=== PATIENT | male | born 1985 | race Caucasian/White ===

== ENCOUNTER → 2018-02-22 | Outpatient (REF) | payer OTHER ==
[2018-02-22 22:23] LABS: APPEARANCE, URINE CLEAR (CLEAR); BACTERIA, URINE AUTO NEGATIVE (NEGATIVE); BILIRUBIN, URINE AUTO NEGATIVE (NEGATIVE); BLOOD, URINE BLOOD NEGATIVE (NEGATIVE); COLOR, URINE YELLOW (YELLOW); GLUCOSE, URINE (UA) AUTO NEGATIVE (NEGATIVE); KETONE, URINE AUTO NEGATIVE (NEGATIVE); LEUKOCYTE ESTERASE, URINE AUTO 1+ (NEGATIVE); MUCUS, URINE SMALL (NEGATIVE); NITRITE, URINE AUTO NEGATIVE (NEGATIVE); PROTEIN, URINE AUTO NEGATIVE (NEGATIVE); RBC, URINE AUTO 1 /HPF (0-3); SPECIFIC GRAVITY URINE AUTO 1.016 (1.002-1.035); SQUAMOUS EPITHELIAL CELL UR AU 0 /HPF (0-6); UROBILINOGEN, URINE AUTO 0.2 mg/dL (0.0-2.0); WBC, URINE AUTO 15 /HPF (0-3)
[2018-02-22 23:44] LABS: CHLAMYDIA DNA AMPLIFICATION NEGATIVE (NEGATIVE); GC DNA AMPLIFICATION NEGATIVE (NEGATIVE)
== END ==
LOC: M LAB REF 09:02
DX: R30.0 Dysuria (principal)

== ENCOUNTER → 2018-02-28 | Outpatient (REF) | payer OTHER | LOC: M SFHCPLAZ 15:49 | DX: R30.0 Dysuria (principal); Z13.0 Encounter for screening for diseases of the blood and blood-forming organs and certain disorders involving the immune mechanism; Z13.21 Encounter for screening for nutritional disorder; Z11.3 Encounter for screening for infections with a predominantly sexual mode of transmission; Z13.29 Encounter for screening for other suspected endocrine disorder ==

== ENCOUNTER → 2018-03-02 | Outpatient (REF) | payer OTHER ==
[2018-03-02 16:46] LABS: HEMATOCRIT 43.3 % (42.0-52.0); HEMOGLOBIN 15.1 g/dl (13.5-17.5); MEAN CORPUSCULAR HEMOGLOBIN 32.5 pg (27.0-33.0); MEAN CORPUSCULAR HGB CONC 34.9 g/dl (32.0-36.5); MEAN CORPUSCULAR VOLUME 93.3 fl (80.0-96.0); PLATELET COUNT, AUTOMATED 297 10^3/uL (150-450); RED BLOOD COUNT 4.64 10^6/uL (4.30-6.10); RED CELL DISTRIBUTION WIDTH 11.4 % (11.5-14.5); WHITE BLOOD COUNT 7.3 10^3/uL (4.0-10.0)
[2018-03-02 17:20] LABS: APPEARANCE, URINE CLEAR (CLEAR); BACTERIA, URINE AUTO NEGATIVE (NEGATIVE); BILIRUBIN, URINE AUTO NEGATIVE (NEGATIVE); BLOOD, URINE BLOOD NEGATIVE (NEGATIVE); COLOR, URINE STRAW (YELLOW); GLUCOSE, URINE (UA) AUTO NEGATIVE (NEGATIVE); KETONE, URINE AUTO NEGATIVE (NEGATIVE); LEUKOCYTE ESTERASE, URINE AUTO NEGATIVE (NEGATIVE); NITRITE, URINE AUTO NEGATIVE (NEGATIVE); PROTEIN, URINE AUTO NEGATIVE (NEGATIVE); RBC, URINE AUTO 1 /HPF (0-3); SPECIFIC GRAVITY URINE AUTO 1.011 (1.002-1.035); SQUAMOUS EPITHELIAL CELL UR AU 0 /HPF (0-6); UROBILINOGEN, URINE AUTO 0.2 mg/dL (0.0-2.0); WBC, URINE AUTO 0 /HPF (0-3)
[2018-03-02 17:25] LABS: ALBUMIN 4.3 GM/DL (3.2-5.2); ALKALINE PHOSPHATASE 81 U/L (45-117); ALT/SGPT 76 U/L (12-78); ANION GAP 7 MEQ/L (8-16); AST/SGOT 36 U/L (7-37); BILIRUBIN,TOTAL 0.3 MG/DL (0.2-1.0); BLOOD UREA NITROGEN 13 MG/DL (7-18); CALCIUM LEVEL 9.3 MG/DL (8.5-10.1); CARBON DIOXIDE LEVEL 30 MEQ/L (21-32); CHLORIDE LEVEL 101 MEQ/L (98-107); CREATININE FOR GFR 1.33 MG/DL (0.70-1.30); FREE T4 0.97 NG/DL (0.76-1.46); GLOMERULAR FILTRATION RATE > 60.0 (>60); GLUCOSE, FASTING 89 MG/DL (70-100); POTASSIUM SERUM 4.4 MEQ/L (3.5-5.1); SODIUM LEVEL 138 MEQ/L (136-145); TOTAL PROTEIN 8.6 GM/DL (6.4-8.2)
[2018-03-02 18:52] LABS: ESTIMATED AVERAGE GLUCOSE 105 MG/DL (60-110); HEMOGLOBIN A1c 5.3 %
[2018-03-03 12:20] LABS: HIV 1&2 SCREEN CENTAUR NEGATIVE (NEGATIVE)
== END ==
LOC: M SFHCPLAZ 15:53
DX: R30.0 Dysuria (principal); Z13.0 Encounter for screening for diseases of the blood and blood-forming organs and certain disorders involving the immune mechanism; Z13.21 Encounter for screening for nutritional disorder; Z11.3 Encounter for screening for infections with a predominantly sexual mode of transmission; Z13.29 Encounter for screening for other suspected endocrine disorder
CPT/HCPCS: 84443

== ENCOUNTER → 2018-09-19 | Outpatient (CLI) | payer BC, OTHER | LOC: M SLEEP HO 11:03 | DX: G47.33 Obstructive sleep apnea (adult) (pediatric) (principal) | CPT/HCPCS: G0399 ==

== ENCOUNTER → 2018-09-25 | Outpatient (CLI) | payer BC, OTHER | LOC: M WUC 15:46 | DX: M79.672 Pain in left foot (principal) | CPT/HCPCS: 73630 ==

== ENCOUNTER → 2019-01-08 | Outpatient (REF) | payer OTHER | LOC: M SFHCPLAZ 14:34 | PROVIDERS: ATTEND Family Medicine | DX: E55.9 Vitamin D deficiency, unspecified (principal) ==

== ENCOUNTER 2019-08-11 17:08 | Emergency (ER) | payer BC, OTHER ==
[~2019-08-11] VITALS: Ht 177.8 cm; Wt 97.7 kg
[2019-08-11 17:08] VITALS: BP 141/86
[2019-08-11] MEDS ORDERED: ZANT150T40 PO (17:14)
[2019-08-11] MEDS ORDERED: IBUPROFEN 600 MG TAB PO ONE (19:00)
--- NOTE | 2019-08-12 09:19 | REP ---
Left ankle four views : There is no fracture or dislocation. Mineralization and joint spaces are normal. There are no calcifications or foreign bodies. Impression: Negative left ankle . Electronically Signed by Mendel Garcia MD 08/12/2019 09:11 A
== END 2019-08-11 19:03 | disposition home or self-care (01) ==
LOC: M ED 17:08
DX: S93.402A Sprain of unspecified ligament of left ankle, initial encounter (principal); W10.8XXA Fall (on) (from) other stairs and steps, initial encounter; Y92.018 Other place in single-family (private) house as the place of occurrence of the external cause; Z79.899 Other long term (current) drug therapy

== ENCOUNTER → 2022-10-27 | Outpatient (CLI) | payer BC, OTHER ==
[~2022-10-27] MED LIST: ZANT150T40 PO
[2022-10-27 18:58] LABS: BASO % 0.6 % (0.0-1.0); EOS % 0.6 % (0.0-3.0); HEMATOCRIT 45.6 % (42.0-52.0); HEMOGLOBIN 15.2 g/dl (13.5-17.5); LYMPH # 1.7 10^3/uL (1.5-5.0); LYMPH % 24.1 % (24.0-44.0); MEAN CORPUSCULAR HGB CONC 33.3 g/dl (32.0-36.5); MEAN CORPUSCULAR VOLUME 99.1 fl (80.0-96.0); MONO # 0.9 10^3/uL (0.0-0.8); MONO % 11.9 % (2.0-8.0); NEUTROPHILS # 4.5 10^3/uL (1.5-8.5); NEUTROPHILS % 62.2 % (36.0-66.0); PLATELET COUNT, AUTOMATED 255 10^3/uL (150-450); WHITE BLOOD COUNT 7.2 10^3/uL (4.0-10.0)
[2022-10-27 19:26] LABS: ALBUMIN 4.5 G/DL (3.2-5.2); ALKALINE PHOSPHATASE 69 U/L (46-116); ALT/SGPT 48 U/L (7.0-40); AST/SGOT 28 U/L (<34); BILIRUBIN,TOTAL 0.4 MG/DL (0.3-1.2); BLOOD UREA NITROGEN 19 MG/DL (9-23); CARBON DIOXIDE LEVEL 29 MMOL/L (20-31); CHLORIDE LEVEL 101 MMOL/L (98-107); CHOLESTEROL LEVEL 240 MG/DL (<200); CHOLESTEROL RISK RATIO 4.17 (<5); CREATININE FOR GFR 1.07 MG/DL (0.70-1.30); GLOMERULAR FILTRATION RATE > 60.0 (>60); GLUCOSE, FASTING 102 MG/DL (60-100); HDL CHOLESTEROL 57.5 MG/DL (>40); LDL CHOLESTEROL 116.1 MG/DL (<100); NON-HDL-C 183 MG/DL; POTASSIUM SERUM 4.3 MMOL/L (3.5-5.1); SODIUM LEVEL 139 MMOL/L (136-145); TOTAL PROTEIN 7.6 G/DL (5.7-8.2); TRIGLYCERIDES LEVEL 332 MG/DL (<150)
[2022-10-27 19:28] LABS: TOTAL 25(OH) VITAMIN D 39.9 NG/ML (20.0-100.0)
== END ==
LOC: M PLALAB 14:37
PROVIDERS: ATTEND Nurse Practitioner Family
DX: E55.9 Vitamin D deficiency, unspecified (principal); R82.998 Other abnormal findings in urine; Z13.220 Encounter for screening for lipoid disorders; J45.20 Mild intermittent asthma, uncomplicated

== ENCOUNTER → 2022-11-22 | Outpatient (CLI) | payer BC, OTHER ==
[2022-11-22 17:42] LABS: APPEARANCE, URINE MANUAL CLEAR (CLEAR); BILIRUBIN, URINE MANUAL NEGATIVE (NEGATIVE); BLOOD URINE MANUAL NEGATIVE (NEGATIVE); COLOR, URINE MANUAL YELLOW (YELLOW); GLUCOSE, URINE (UA) MANUAL NEGATIVE (NEGATIVE); KETONE, URINE MANUAL NEGATIVE (NEGATIVE); LEUKOCYTE ESTERASE, URINE MAN NEGATIVE (NEGATIVE); NITRITE, URINE MANUAL NEGATIVE (NEGATIVE); PROTEIN, URINE MANUAL NEGATIVE (NEGATIVE); UROBILINOGEN, URINE MANUAL NORMAL (NORMAL)
== END ==
LOC: M PLALAB 14:28
PROVIDERS: ATTEND Nurse Practitioner Family
DX: R82.998 Other abnormal findings in urine (principal)

== ENCOUNTER → 2022-11-22 | Outpatient (CLI) | payer BC, OTHER | LOC: M PLAIMG 14:26 | PROVIDERS: ATTEND Physician Assistant Medical | DX: M25.511 Pain in right shoulder (principal); M25.512 Pain in left shoulder; M54.50 Low back pain, unspecified ==

== ENCOUNTER 2023-06-04 15:05 | Emergency (ER) | payer BC, OTHER ==
[~2023-06-04] VITALS: Ht 180.3 cm; Wt 95.7 kg
[2023-06-04 15:06] VITALS: BP 142/92; TEMP 98.2; O2SAT 99
[2023-06-04] MEDS ORDERED: RABIES VACCINE HUMAN 2.5 INTERNATIONAL UNITS/ML VIAL IM ONE (16:20)
[2023-06-04] MEDS ORDERED: RABIES IMMUNE GLOBULIN 1500 INTERNATIONAL UNIT/5ML VIAL IM.IMMUN ONE ×2 (16:20→16:25)
[2023-06-04] MEDS ORDERED: RABIES IMMUNE GLOBULIN 300 INTERNATIONAL UNITS/1ML VIAL IM.IMMUN ONE (16:25)
[2023-06-04] MEDS ORDERED: BOOSTRIX VACCINE (TETANUS/DIPHTH/ACEL. PERTUSSIS) 0.5ML SYR IM ONE (17:05)
== END 2023-06-04 17:12 | disposition home or self-care (01) ==
LOC: M ED 15:05
DX: Z29.14 Encounter for prophylactic rabies immune globulin (principal); K21.9 Gastro-esophageal reflux disease without esophagitis; N43.3 Hydrocele, unspecified; Z79.899 Other long term (current) drug therapy

== ENCOUNTER → 2023-06-07 | Outpatient (CLI) | payer BC, OTHER | LOC: M SLEEP 20:00 | PROVIDERS: ATTEND Nurse Practitioner Family | DX: G47.33 Obstructive sleep apnea (adult) (pediatric) (principal); R06.83 Snoring ==

== ENCOUNTER 2024-06-04 09:55 | Emergency (ER) | payer BC, OTHER ==
[~2024-06-04] VITALS: Ht 180.3 cm; Wt 93.9 kg
[2024-06-04 09:56] VITALS: BP 148/93; TEMP 98.4; O2SAT 98
[2024-06-04] MEDS ORDERED: NEXI20CA33 PO (10:00)
[2024-06-04] MEDS ORDERED: RABIES IMMUNE GLOBULIN 1500 INTERNATIONAL UNIT/5ML VIAL IM.IMMUN ONE ×2 (10:15→11:00)
[2024-06-04] MEDS: RABIES VACCINE HUMAN 2.5 INTERNATIONAL UNITS/ML VIAL IM ONE (10:37)
[2024-06-04] MEDS: RABIES IMMUNE GLOBULIN 300 INTERNATIONAL UNITS/1ML VIAL IM.IMMUN ONE (11:02)
[2024-06-04] MEDS: RABIES IMMUNE GLOBULIN 1500 INTERNATIONAL UNIT/5ML VIAL IM.IMMUN ONE (11:08)
== END 2024-06-04 11:26 | disposition home or self-care (01) ==
LOC: M ED 09:55
DX: Z20.3 Contact with and (suspected) exposure to rabies (principal); Z23 Encounter for immunization

== ENCOUNTER 2024-06-07 07:01 | Emergency (ER) | payer BC ==
[~2024-06-07] VITALS: Ht 180.3 cm; Wt 94.4 kg
[2024-06-07 07:01] VITALS: BP 145/89; TEMP 97.3; O2SAT 99
[~2024-06-07 07:01] MED LIST changes: +NEXI20CA33 PO
[2024-06-07] MEDS: RABIES VACCINE HUMAN 2.5 INTERNATIONAL UNITS/ML VIAL IM ONE (08:25)
== END 2024-06-07 09:01 | disposition home or self-care (01) ==
LOC: M ED 07:01
DX: Z20.3 Contact with and (suspected) exposure to rabies (principal); Z23 Encounter for immunization

== ENCOUNTER 2024-06-11 10:54 | Emergency (ER) | payer BC ==
[~2024-06-11] VITALS: Ht 180.3 cm; Wt 94.2 kg
[2024-06-11 10:55] VITALS: BP 140/96; TEMP 97.6; O2SAT 98
[2024-06-11] MEDS: RABIES VACCINE HUMAN 2.5 INTERNATIONAL UNITS/ML VIAL IM ONE (11:50)
== END 2024-06-11 12:05 | disposition home or self-care (01) ==
LOC: M ED 10:54
DX: Z20.3 Contact with and (suspected) exposure to rabies (principal); Z23 Encounter for immunization; Z79.899 Other long term (current) drug therapy

== ENCOUNTER 2024-06-18 10:44 | Emergency (ER) | payer BC, OTHER ==
[~2024-06-18] VITALS: Ht 180.3 cm; Wt 94.6 kg
[2024-06-18] MEDS: RABIES VACCINE HUMAN 2.5 INTERNATIONAL UNITS/ML VIAL (IMOVAX) IM ONE (11:55)
[2024-06-18 12:16] VITALS: BP 138/88; TEMP 97.4; O2SAT 96
== END 2024-06-18 12:16 | disposition home or self-care (01) ==
LOC: M ED 10:44
DX: Z20.3 Contact with and (suspected) exposure to rabies (principal); Z23 Encounter for immunization; K21.9 Gastro-esophageal reflux disease without esophagitis; Z79.899 Other long term (current) drug therapy

== ENCOUNTER → 2024-08-17 | Outpatient (CLI) | payer BC ==
[2024-08-17 14:54] LABS: BASO % 0.6 % (0.0-1.0); EOS # 0.2 10^3/uL (0.0-0.5); HEMATOCRIT 43.5 % (42.0-52.0); HEMOGLOBIN 14.9 g/dl (13.5-17.5); LYMPH % 29.6 % (24.0-44.0); MEAN CORPUSCULAR HEMOGLOBIN 33.4 pg (27.0-33.0); MEAN CORPUSCULAR HGB CONC 34.3 g/dl (32.0-36.5); MEAN CORPUSCULAR VOLUME 97.5 fl (80.0-96.0); MONO # 0.6 10^3/uL (0.0-0.8); MONO % 9.5 % (2.0-8.0); NEUTROPHILS # 3.8 10^3/uL (1.5-8.5); NEUTROPHILS % 57.2 % (36.0-66.0); PLATELET COUNT, AUTOMATED 249 10^3/uL (150-450); RED BLOOD COUNT 4.46 10^6/uL (4.30-6.10); WHITE BLOOD COUNT 6.7 10^3/uL (4.0-10.0)
[2024-08-17 15:22] LABS: C REACTIVE PROTEIN QUANTITATIV < 0.40 MG/DL (<1.0)
[2024-08-17 15:24] LABS: ALBUMIN 4.5 G/DL (3.2-5.2); ALKALINE PHOSPHATASE 70 U/L (46-116); ALT/SGPT 56 U/L (7.0-40); AST/SGOT 25 U/L (<34); BILIRUBIN,TOTAL 0.6 MG/DL (0.3-1.2); BLOOD UREA NITROGEN 15 MG/DL (9-23); CARBON DIOXIDE LEVEL 31 MMOL/L (20-31); CHLORIDE LEVEL 105 MMOL/L (98-107); CHOLESTEROL LEVEL 260 MG/DL (<200); CHOLESTEROL RISK RATIO 4.34 (<5); CREATININE FOR GFR 0.85 MG/DL (0.70-1.30); GLOMERULAR FILTRATION RATE > 60.0 (>60); GLUCOSE, FASTING 85 MG/DL (60-100); HDL CHOLESTEROL 59.8 MG/DL (>40); LDL CHOLESTEROL 159.4 MG/DL (<100); NON-HDL-C 200.2 MG/DL; POTASSIUM SERUM 3.8 MMOL/L (3.5-5.1); RHEUMATOID FACTOR QUANT 5.2 IU/ML (<14); SODIUM LEVEL 137 MMOL/L (136-145); TOTAL PROTEIN 8.1 G/DL (5.7-8.2); TRIGLYCERIDES LEVEL 204 MG/DL (<150)
[2024-08-17 15:26] LABS: ERYTHROCYTE SEDIMENTATION RATE 15 mm/hr (0-15)
[2024-08-17 15:28] LABS: TOTAL 25(OH) VITAMIN D 41.7 NG/ML (20.0-100.0)
[2024-08-20 16:22] LABS: ANA SCREEN, IFA NEGATIVE (NEGATIVE)
[2024-08-21 19:08] LABS: LYME TOTAL ANTIBODY CIA <= 0.90 Index (<=0.90)
== END ==
LOC: M PLAIMG 12:15
PROVIDERS: ATTEND Nurse Practitioner Family
DX: M25.551 Pain in right hip (principal); M25.552 Pain in left hip; E55.9 Vitamin D deficiency, unspecified; E78.2 Mixed hyperlipidemia; Z13.1 Encounter for screening for diabetes mellitus; J45.20 Mild intermittent asthma, uncomplicated; R93.6 Abnormal findings on diagnostic imaging of limbs

== ENCOUNTER 2024-10-03 13:21 | Outpatient (RCR) | payer BC | END 2024-10-06 | LOC: M PT 13:21 | PROVIDERS: ATTEND Nurse Practitioner Family | DX: M25.859 Other specified joint disorders, unspecified hip (principal) ==

== ENCOUNTER 2024-10-22 07:00 | Outpatient (RCR) | payer BC | END 2024-11-06 | LOC: M PT 07:00 | PROVIDERS: ATTEND Nurse Practitioner Family | DX: M25.859 Other specified joint disorders, unspecified hip (principal) ==

== ENCOUNTER → 2025-09-04 | Outpatient (CLI) | payer BC ==
[2025-09-04 11:15] LABS: BASO # 0.0 10^3/uL (0.0-0.2); BASO % 0.5 % (0.0-1.0); EOS # 0.1 10^3/uL (0.0-0.5); EOS % 1.1 % (0.0-3.0); LYMPH # 1.9 10^3/uL (1.5-5.0); LYMPH % 33.0 % (24.0-44.0); MONO # 0.7 10^3/uL (0.0-0.8); MONO % 11.9 % (2.0-8.0); NEUTROPHILS # 3.0 10^3/uL (1.5-8.5); NEUTROPHILS % 53.1 % (36.0-66.0); PLATELET COUNT, AUTOMATED 283 10^3/uL (150-450)
[2025-09-04 11:16] LABS: ALT/SGPT 65 U/L (7.0-40); AST/SGOT 33 U/L (<34); CALCIUM LEVEL 10.2 MG/DL (8.5-10.1); CARBON DIOXIDE LEVEL 30 MMOL/L (20-31); CHLORIDE LEVEL 103 MMOL/L (98-107); CHOLESTEROL LEVEL 262 MG/DL (<200); CHOLESTEROL RISK RATIO 5.41 (<5); CREATININE FOR GFR 1.00 MG/DL (0.70-1.30); GLOMERULAR FILTRATION RATE > 90.0 (>60); LDL CHOLESTEROL 184.4 MG/DL (<100); NON-HDL-C 213.6 MG/DL; POTASSIUM SERUM 4.7 MMOL/L (3.5-5.1); SODIUM LEVEL 140 MMOL/L (136-145); TRIGLYCERIDES LEVEL 146 MG/DL (<150)
[2025-09-04 11:18] LABS: FREE T4 1.23 NG/DL (0.89-1.76)
== END ==
LOC: M PLALAB 08:49 → M PLARAD 08:49
PROVIDERS: ATTEND Nurse Practitioner Family
DX: E55.9 Vitamin D deficiency, unspecified (principal); R53.83 Other fatigue; E78.2 Mixed hyperlipidemia